=== PATIENT | male | born 2000 | race Caucasian/White ===

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

== ENCOUNTER 2019-02-12 20:50 | Emergency (ER) | payer BC ==
[~2019-02-12] VITALS: Ht 185.4 cm; Wt 131.5 kg
[2019-02-12 22:03] VITALS: BP 118/69
== END 2019-02-12 22:12 | disposition home or self-care (01) ==
LOC: ER 20:50
DX: S50.861A Insect bite (nonvenomous) of right forearm, initial encounter (principal); S40.861A Insect bite (nonvenomous) of right upper arm, initial encounter; S30.861A Insect bite (nonvenomous) of abdominal wall, initial encounter; S00.86XA Insect bite (nonvenomous) of other part of head, initial encounter; J45.909 Unspecified asthma, uncomplicated; E11.9 Type 2 diabetes mellitus without complications; F90.9 Attention-deficit hyperactivity disorder, unspecified type; Z88.6 Allergy status to analgesic agent; W57.XXXA Bitten or stung by nonvenomous insect and other nonvenomous arthropods, initial encounter; Y93.89 Activity, other specified; Y92.89 Other specified places as the place of occurrence of the external cause; Y99.8 Other external cause status

== ENCOUNTER 2019-10-13 09:10 | Emergency (ER) | payer BC ==
[~2019-10-13] VITALS: Ht 188 cm; Wt 136.1 kg
[2019-10-13 10:56] LABS: CALCIUM 9.3 mg/dL (8.5-10.1); CREATININE 0.7 mg/dL (0.7-1.3); POTASSIUM 4.2 mmol/L (3.5-5.1)
[2019-10-13 11:27] LABS: ABSOLUTE NEUTROPHILS 8.1 thou/uL (1.4-8.2); BASOPHILS 0.8 % (0.0-2.0); EOSINOPHILS 0.9 % (0.0-3.0); HEMATOCRIT 46.2 % (42.0-52.0); HEMOGLOBIN 15.7 gm/dL (14.0-18.0); LYMPHOCYTES 22.7 % (24.0-44.0); MCH 27.9 pg (26.0-34.0); PLATELET COUNT 523 thou/uL (150-400); POLYS 68.6 % (36.0-66.0); RBC 5.64 mil/uL (4.50-6.00); WBC 11.8 thou/uL (4.0-11.0)
[2019-10-13 11:39] VITALS: BP 128/82
== END 2019-10-13 12:00 | disposition home or self-care (01) ==
LOC: ER 09:10
PROVIDERS: Emergency Medicine
DX: M66.0 Rupture of popliteal cyst (principal); M25.562 Pain in left knee; J45.909 Unspecified asthma, uncomplicated; E11.9 Type 2 diabetes mellitus without complications; Z88.6 Allergy status to analgesic agent

== ENCOUNTER 2020-03-24 09:44 | Emergency (ER) | payer OTHER ==
[~2020-03-24] VITALS: Ht 188 cm; Wt 76.2 kg
--- NOTE | ~2020-03-24 | HC ---
[facility] [place] [address] CONSULTATION Name: ALEX MONTANEZ Room #: DEP [facility]#: [id number] Admission: 03/24/20 Attend Phys: Discharge: 03/24/20 Date of : [birth year] Report #: [id number] THIS REPORT FOR: cc: MIGUELINA - No family physician/PCP MIGUELINA - No family physician/PCP Fausto Haley MD ~ DATE OF SERVICE: 03/24/2020 HISTORY OF PRESENT ILLNESS: This is a 20-year-old male patient who was evaluated by me for the possibility of stroke at the referral from Dr. Galindo from Emergency Room. I got the initial call when I was in [place] and Dr. Galindo indicated that the patient is a 20-year-old and he has a prior history of seizure and he has come here with the left-sided headache as well as left-sided weakness. The patient is right handed. He had no speech output at that time, according to Dr. Galindo. The symptoms were unusual because he had a left-sided headache and the left-sided weakness as well as a complete speech difficulty, unable to speak at all in a right-handed person. Moreover, he was able to write and able to understand everything. Because of that, he was going to do CT stroke protocol, which was done. It was read by Dr. Higgins. I tried to contact him, but I could not reach him because according to Radiology he was in a procedure and therefore I asked them to leave a message for him to call me back. I was able to get these films reviewed by another radiologist, Dr. Christy in the meantime and he said the study looks unremarkable. I will talk to Dr. Higgins when he calls back. I have also left a message on his cell phone. I came from [place] and initially I could not see the patient because the patient had gone for MRI, but subsequently I came and saw the patient when he came back to the room. Before he came back to the room, I was able to talk to the mother. Mother did not provide much history. She said the patient has been unemployed and has been working at some place for 2 weeks; she does not know what work he does and she just did not provide much history. When I came to see the patient, he was holding his phone in the left arm and said that he is able to move his left arm. When I tried to examine him, then he also lifted it up, but lifted up in a very unusual fashion, but he said his speech is back. He denies any stress. He denies any history of anxiety and depression. He will not describe to me the nature of his seizure because he says he does not remember. He said he had a history of ADHD. He also says he has a history of diabetes, but he does not take any medications because he cannot afford that. All of it made evaluation very difficult. History taking was pretty evasive and very difficult. [address] [address] CONSULTATION Name: ALEX MONTANEZ JR Room #: DEP [facility]#: [id number] Admission: 03/24/20 Attend Phys: Discharge: 03/24/20 Date of : [birth year] Report #: [id number] REVIEW OF SYSTEMS: A 14-point review of systems was carried out and he basically denies all of them and a said that he is not under stress, but he cannot find any job. PAST MEDICAL HISTORY: Positive for seizure, but he will not describe what kind of seizure he had. He said he used to take the medication, but he does not take the medication anymore. The mother does not know what medicine he was taking. FAMILY HISTORY: Unremarkable. SOCIAL HISTORY: He says he does not smoke, drink alcohol or do any drugs. PHYSICAL EXAMINATION: On my examination, he is alert. He is responsive. He can follow simple commands and his speech was normal. That is different because prior to me seeing him, he was not having any speech at all, but he was able to write and he was able to understand everything. His cranial nerve examination on my examination appears unremarkable. When I do the visual field, he does it slowly and in unusual fashion, but does it. He is still complaining of pain on the left side of the head. On my examination, his left motor strength is pretty much normal, but he says he has absolutely no position sense in the left leg as well as left hand and his sensation on the left face is impaired significantly. His reflexes are symmetrical and both the plantars appeared to be withdrawal. There is no meningeal sign. He did not cooperate with the fundus examination. His cardiorespiratory examinations appear noncontributory. I reviewed the patient's CT angio with the radiologist and those are summarized above. I reviewed the patient's MRI and MRA and to me it looked unremarkable and it does not appear to be showing any diffusion weighted abnormality. IMPRESSION: I discussed with the patient that we have not found any etiology, which can explain the patient's symptoms. He does have some abnormality on the CT angiogram, which looks like a questionable abnormality and I was going to check with the radiologist, who read that. That will be unlikely to explain his symptoms, but I am not sure how much workup it will need. The problem is that he cannot even afford the medication even if I prescribe to him. His symptoms are pretty unusual. It was my impression that it is unlikely to be stroke. He does have a question of abnormality on his CT angio and I am waiting for a call from Dr. Higgins to discuss that further with him and I will review the films with him. I have spent more than 70 minutes of time taking care of this patient today and that time included multiple conversations with the Emergency Room physician, [address] [place] [address] CONSULTATION Name: ALEX MONTANEZ JR Room #: DEP [facility] [place]#: [id number] Admission: 03/24/20 Attend Phys: Discharge: 03/24/20 Date of : 89 Report #: [id number] multiple phone calls made from my cell phone to [facility] for Dr. Higgins as well as [place] [facility] to see where Gisela today and to talk to Dr. Christy, my counseling with the patient's mother, my conversation with the nurses as well as decision support manager as well as sales promotion coordinator. Thank you very much for this referral and I will talk to Dr. Higgins when he calls back. By: [id number] Fausto Haley MD /nt
[2020-03-24 10:05] LABS: ABSOLUTE NEUTROPHILS 6.3 thou/uL (1.4-8.2); BASOPHILS 0.9 % (0.0-2.0); EOSINOPHILS 0.8 % (0.0-3.0); HEMATOCRIT 46.9 % (42.0-52.0); HEMOGLOBIN 15.7 gm/dL (14.0-18.0); LYMPHOCYTES 25.4 % (24.0-44.0); MCH 26.9 pg (26.0-34.0); MCHC 33.5 g/dL (28.0-37.0); MCV 80.1 fL (80.0-100.0); PLATELET COUNT 436 thou/uL (150-400); POLYS 66.9 % (36.0-66.0); RBC 5.86 mil/uL (4.50-6.00); RDW 13.9 % (10.5-14.5); WBC 9.4 thou/uL (4.0-11.0)
[2020-03-24 10:15] LABS: ANION GAP 11 mmol/L (7-16); BUN 14 mg/dL (7-18); CALCIUM 9.4 mg/dL (8.5-10.1); CHLORIDE 105 mmol/L (98-107); CO2 27 mmol/L (21-32); CREATININE 0.8 mg/dL (0.7-1.3); GLUCOSE 109 mg/dL (74-106); SODIUM 143 mmol/L (136-145)
[2020-03-24 10:25] LABS: ALBUMIN 4.1 g/dL (3.4-5.0); SGOT 27 U/L (15-37); SGPT 45 U/L (30-65); TOTAL BILIRUBIN 0.5 mg/dL (0.2-1.0); TOTAL PROTEIN 7.9 g/dL (6.4-8.2); TROPONIN-I <0.06 ng/mL (<0.06)
[2020-03-24 10:30] LABS: APTT 25.4 Seconds (24.5-32.8); PROTIME 10.4 Seconds (9.3-11.4)
[2020-03-24 10:46] LABS: AMP/METHAMP Negative (Negative); BARBITURATES Negative (Negative); BENZODIAZEPINES Negative (Negative); COCAINE Negative (Negative); METHADONE Negative (Negative); OPIATES Negative (Negative); PCP Negative (Negative)
--- NOTE | 2020-03-24 14:30 | EKG ---
[facility] [place] [address] ELECTROCARDIOGRAM REPORT Name: ALEX MONTANEZ Room #: REG [facility]#: [id number] Admission: 03/24/20 Attend Phys: Discharge: Date of : 89 Report #: [id number] THIS REPORT FOR: cc: MIGUELINA - Dee Dee family physician/PCP MIGUELINA - Dee Dee family physician/PCP Lorenzo Hogan MD [facility] ~ THIS REPORT FOR: //name// [facility] ED Test Date: 2020-03-24 Test Time: 10:16:14 Pat Name: LAEX MONTANEZ Department: Room: Gender: M Materials Planner/Production Planner: dee dee : 2000 Requested By: Butch Vanessa Order Number: [id number] MD: Lorenzo Hogan Measurements Intervals [place] Rate: 84 P: 42 OR: 141 QRS: 29 QRSD: 88 T: 21 QT: 359 QTc: 425 Interpretive Statements Sinus rhythm Borderline T wave abnormalities No previous ECG available for comparison Electronically Signed On 03-24-2020 14:30:47 CDT by Lorenzo Hogan [email or web address] <ELECTRONICALLY SIGNED> By: Lorenzo Hogan MD, FACC 03/24/20 1430 1016 [facility] Lorenzo Hogan MD, FACC /EPI
[2020-03-24 14:54] VITALS: BP 128/51
== END 2020-03-24 14:55 | disposition home or self-care (01) ==
LOC: ER 09:44
PROVIDERS: Emergency Medicine
DX: R51.9 Headache, unspecified (principal); R53.1 Weakness; E11.9 Type 2 diabetes mellitus without complications; J45.909 Unspecified asthma, uncomplicated